=== PATIENT | male | born 1980 | race Caucasian/White ===

== ENCOUNTER 2019-12-25 16:22 | Emergency (ER) | payer BC ==
[2019-12-25 16:46] VITALS: BP 158/105; PULSE 65; O2SAT 96
--- NOTE | 2019-12-25 16:47 | ERPHSYRPT ---
- History of Present Illness Time Seen by Provider: 12/25/19 16:46 Patient Subjective Stated Complaint: Pt states that he was having some high blood pressure on Wednesday and that his face kept feeling really hot and began to burn and then the rash appeared Triage Nursing Assessment: Pt walked into the ER, hypertensive, rates burning pain as 2/10, denies rash being anywhere else on his body, denies any new soap, lotions, aftershave, foods, pt states that he did take Elderberry on Wednesday, face, head, and neck is red and has a small elevated rash to him Physician History: This is a 39-year-old gentleman with history of hypertension on lisinopril and Pepcid who presents with a 3-day history of intermittent redness and warmth to his skin. Today, he noticed worsening redness as well as associated rash that itches. Patient states he has no known new exposures. However, he is allergic to some types of fragrances. It is unclear to him whether or not he was exposed to a fragrance or not. Patient denies any respiratory issues at this time. Timing/Duration: day(s) (3) Quality: burning, itchy Severity: moderate Location: scalp, face, torso Possible Causes: no cause identified Modifying Factors: Improves With: other (Patient has not tried anything. However, he does take Pepcid daily) Associated Symptoms: hives, rash, No difficulty breathing, No fever, No nasal congestion, No numbness, No sore throat Allergies/Adverse Reactions: bupropion [From Wellbutrin] Allergy (Verified 12/25/19 16:46) Home Medications: Famotidine 20 mg [Pepcid 20 MG] 20 mg PO DAILY 12/25/19 [History] lisinopriL [Lisinopril] 10 mg PO DAILY 12/25/19 [History] - Review of Systems Constitutional: No Symptoms Eyes: No Symptoms Ears, Nose, & Throat: No Symptoms Respiratory: No Symptoms Cardiac: No Symptoms Abdominal/Gastrointestinal: No Symptoms Genitourinary Symptoms: No Symptoms Musculoskeletal: No Symptoms Skin: Pruritis, Rash Neurological: No Symptoms Psychological: No Symptoms Endocrine: No Symptoms Hematologic/Lymphatic: No Symptoms Immunological/Allergic: No Symptoms All Other Systems: Reviewed and Negative - Past Medical History Pertinent Past Medical History: Yes Neurological History: No Pertinent History ENT History: No Pertinent History Cardiac History: High Cholesterol, Hypertension Respiratory History: No Pertinent History Endocrine Medical History: No Pertinent History Musculoskeletal History: No Pertinent History GI Medical History: No Pertinent History History: No Pertinent History Psycho-Social History: No Pertinent History Male Reproductive Disorders: No Pertinent History - Past Surgical History Past Surgical History: Yes Neuro Surgical History: No Pertinent History Cardiac: No Pertinent History Respiratory: No Pertinent History Gastrointestinal: No Pertinent History, Cholecystectomy Genitourinary: No Pertinent History Musculoskeletal: No Pertinent History Male Surgical History: No Pertinent History - Social History Smoking Status: Never smoker Exposure to second hand smoke: Yes Drug Use: none Patient Lives Alone: No - Nursing Vital Signs Nursing Vital Signs: Initial Vital Signs Temperature 97.7 F 12/25/19 16:34 Pulse Rate 65 12/25/19 16:34 Blood Pressure 158/105 12/25/19 16:34 O2 Sat by Pulse Oximetry 96 12/25/19 16:34 Pain Scale Pain Intensity 2 - Physical Exam General Appearance: no apparent distress, alert, anxiety Eye Exam: PERRL/EOMI Ears, Nose, Throat Exam: normal ENT inspection, moist mucous membranes Neck Exam: normal inspection, non-tender, supple, full range of motion Respiratory Exam: normal breath sounds, lungs clear, airway intact, No chest tenderness, No respiratory distress Cardiovascular Exam: regular rate/rhythm, normal heart sounds, normal peripheral pulses Gastrointestinal/Abdomen Exam: soft, normal bowel sounds, No tenderness Rectal Exam: not done Back Exam: normal inspection, normal range of motion, No CVA tenderness, No vertebral tenderness Extremity Exam: normal inspection, normal range of motion, pelvis stable Neurologic Exam: alert, oriented x 3, cooperative, band saw marker II-XII nml as tested, nml cerebellar function, nml station & gait, sensation nml Skin Exam: warm, rash, other (Reddened face and neck. Small nonraised coalesced pinpoint pink rash of the face scalp neck and upper torso.) Lymphatic Exam: No adenopathy SpO2 Interpretation: normal SpO2: 96 O2 Delivery: Room Air Ordered Tests: Medication Summary Discontinued Medications Generic Name Dose Route Start Last Admin Trade Name Freq PRN Reason Stop Dose Admin Diphenhydramine HCl 50 mg 12/25/19 16:55 12/25/19 17:11 Benadryl 25 Mg Capsule PO 12/25/19 16:56 50 mg STAT ONE Administration Diphenhydramine HCl Confirm 12/25/19 17:09 Benadryl 25 Mg Capsule Administered 12/25/19 17:10 Dose 50 mg .ROUTE .STK-MED ONE Diphenhydramine HCl Confirm 12/25/19 17:12 Benadryl 25 Mg Capsule Administered 12/25/19 17:13 Dose 25 mg .ROUTE .STK-MED ONE Famotidine 20 mg 12/25/19 16:55 12/25/19 17:11 Pepcid 20 Mg PO 12/25/19 16:56 20 mg STAT ONE Administration Famotidine Confirm 12/25/19 17:09 Pepcid 20 Mg Administered 12/25/19 17:10 Dose 20 mg .ROUTE .STK-MED ONE Methylprednisolone Sodium Succinate 125 mg 12/25/19 16:54 12/25/19 17:11 Solu-Medrol 125 Mg IM 12/25/19 16:55 125 mg STAT ONE Administration Methylprednisolone Sodium Succinate Confirm 12/25/19 17:09 Solu-Medrol 125 Mg Administered 12/25/19 17:10 Dose 125 mg .ROUTE .STK-MED ONE - Progress Progress: improved, re-examined Counseled pt/family regarding: diagnosis, need for follow-up, rad results - Departure Departure Disposition: Home Clinical Impression: Allergic reaction Condition: Stable Critical Care Time: No Referrals: MARCELLA RICE [Primary Care Provider] - Additional Instructions: Take 50 mg of Benadryl each night for the next 4 nights. Increase your Pepcid to 40 mg orally each day for the next 4 days. Take the prednisone medication as prescribed. Follow-up with your primary care physician for further management. Prescriptions: Prednisone 10 mg [Deltasone 10 mg] 10 mg PO TID #12 tablet
[2019-12-25] MEDS ORDERED: solu-MEDROL 125 MG IM ONE (16:54)
[2019-12-25] MEDS ORDERED: BENADRYL 25 MG CAPSULE PO ONE (16:55)
[2019-12-25] MEDS ORDERED: Pepcid 20 MG PO ONE (16:55)
[2019-12-25] MEDS ORDERED: BENADRYL 25 MG CAPSULE ONE ×2 (17:09→17:12)
[2019-12-25] MEDS ORDERED: Pepcid 20 MG ONE (17:09)
[2019-12-25] MEDS ORDERED: solu-MEDROL 125 MG ONE (17:09)
== END 2019-12-25 17:38 | disposition home or self-care (01) ==
LOC: ED 16:22
DX: T78.40XA Allergy, unspecified, initial encounter (principal); I10 Essential (primary) hypertension; Z79.899 Other long term (current) drug therapy; R21 Rash and other nonspecific skin eruption
CPT/HCPCS: 96372; 99283; J2930; A9270-GY

== ENCOUNTER 2020-02-07 00:30 | Emergency (ER) | payer SELFPAY ==
[2020-02-07] MEDS ORDERED: BABY ASPIRIN 81 MG CHEW PO ONE (01:02)
[2020-02-07] MEDS ORDERED: Nitrostat 0.4 MG (ED) SL ONE ×2 (01:02→01:05)
[2020-02-07] MEDS ORDERED: BABY ASPIRIN 81 MG CHEW ONE (01:05)
[2020-02-07] MEDS ORDERED: Sodium Chloride 0.9% 1000 ML 1,000 ML ONE (01:06)
[2020-02-07] MEDS ORDERED: Sodium Chloride 0.9% 1000 ML 1,000 ML IV SCH (01:15)
[2020-02-07 01:21] LABS: Absolute Neutrophil Ct (ANC) 3.93 (1.4-6.9); BASOPHIL % 0.2 % (0.0-0.4); Basophil (Absolute #) 0.02 (0-0.4); Eosinophil % 2.1 % (0.00-5.0); Eosinophil (Absolute #) 0.17 (0-0.5); Hematocrit 46.1 % (42-50); Hemoglobin 15.5 gm/dl (12.5-18.0); Lymphocyte (Absolute #) 3.13 (1.0-4.6); Lymphocytes % 38.3 % (24.0-44.0); Mean Cell Volume 88.1 fl (78-100); Mean Corpuscular Hemoglobin 29.6 pg (26-32); Mean Corpuscular Hgb Concent. 33.6 g/dl (32-36); Mean Platelet Volume 8.9 fl (7.5-11.0); Monocyte (Absolute #) 0.92 (0.0-1.3); Monocytes % 11.3 % (0.0-12.0); Neutrophil % 48.1 % (36.0-66.0); Platelet Count 246 K/mm3 (150-450); Red Blood Count 5.23 M/mm3 (4.1-5.6); Red Cell Distribution Width 12.3 % (11.5-14.0); White Blood Count 8.2 K/mm3 (4.0-10.5)
--- NOTE | 2020-02-07 01:24 | ERPHSYRPT ---
- History of Present Illness Time Seen by Provider: 02/07/20 00:55 Historian: patient Exam Limitations: no limitations Patient Subjective Stated Complaint: Patient states " I have been having chest pain for about 2 weeks that radiates into my left shoulder". Patient states " I started a new blood pressure pill 2 weeks ago (Norvasc 5MG) and it started making me feel weird and I started having aches throughout my chest that was going into my left shoulder so I called my PCP and they told me to stop taking it". Patient states " I stopped taking it last night". Triage Nursing Assessment: Patient arrived to ER per self. Patient A/O times 4. Patient answers questions appropriatley. Central color WNL. Patient denies SOB. Patient states he has been having some nausea and indigestion. Patient denies vomiting. Cap refill < 3 sec. Bilateral lungs clear throughout A/P. No S/S of respiratory distress noted. No dependent edema noted. + BS times 4 quads. ABD soft, round, non-distended. Patient denies any ABD pain or discomfort. Apical pulse strong and regular. Patient hypertensive. Physician History: This is a 39-year-old white male who presents with a two-week history of intermittent chest pain. The chest pain is on the left side it is localized and sharp but at times radiates to his left shoulder. Patient started Norvasc blood pressure medication approximately 2 weeks ago. Patient called his primary care physician who prescribed the medication yesterday. He was told to stop the medication to see if the medication was causing his chest pain. Patient has no history of any cardiac problems. However there is a family history of cardiac issues. Patient denies shortness of breath. Patient denies abdominal pain. Patient has had no fever and no cough. Patient has a significant history of anxiety Timing/Duration: week(s) (2) Activities at Onset: none Location: other (Left of midline anterior chest pain) Chest Pain Radiation: arm (Shoulder) Severity of Pain-Max: mild Severity of Pain-Current: mild Modifying Factors: Improves With: nothing Associated Symptoms: denies symptoms Prior Chest Pain/Cardiac Workup: no prior chest pain Nitro Today/Relief: no nitro taken today Aspirin Treatment Today: no aspirin today Allergies/Adverse Reactions: bupropion [From Wellbutrin] Allergy (Verified 12/25/19 16:46) Home Medications: Famotidine 20 mg [Pepcid 20 MG] 20 mg PO DAILY 12/25/19 [History] lisinopriL [Lisinopril] 10 mg PO DAILY 12/25/19 [History] Hx Tetanus, Diphtheria Vaccination/Date Given: No Hx Influenza Vaccination/Date Given: Yes Hx Pneumococcal Vaccination/Date Given: No Immunizations Up to Date: Yes Travel Risk - International Travel Have you traveled outside of the country in past 3 weeks: No Have you or anyone close to you been diagnosed with or: No Do your reside in a community with a known COVID-19 case?: Yes If Yes where:: [facility] - Coronavirus Screening Has patient experienced Coronavirus symptoms: No - Review of Systems Constitutional: No Symptoms Eyes: No Symptoms Ears, Nose, & Throat: No Symptoms Respiratory: No Symptoms Cardiac: Chest Pain (left anterior chest) Abdominal/Gastrointestinal: No Symptoms Genitourinary Symptoms: No Symptoms Musculoskeletal: No Symptoms Skin: No Symptoms Neurological: No Symptoms Psychological: No Symptoms Endocrine: No Symptoms Hematologic/Lymphatic: No Symptoms Immunological/Allergic: No Symptoms All Other Systems: Reviewed and Negative - Past Medical History Pertinent Past Medical History: Yes Neurological History: No Pertinent History ENT History: No Pertinent History Cardiac History: High Cholesterol, Hypertension Respiratory History: No Pertinent History Endocrine Medical History: No Pertinent History Musculoskeletal History: No Pertinent History GI Medical History: No Pertinent History History: No Pertinent History Psycho-Social History: No Pertinent History Male Reproductive Disorders: No Pertinent History - Past Surgical History Past Surgical History: Yes Neuro Surgical History: No Pertinent History Cardiac: No Pertinent History Respiratory: No Pertinent History Gastrointestinal: No Pertinent History, Cholecystectomy Genitourinary: No Pertinent History Musculoskeletal: No Pertinent History Male Surgical History: No Pertinent History - Social History Smoking Status: Former smoker Exposure to second hand smoke: No Drug Use: none Patient Lives Alone: No - Nursing Vital Signs Nursing Vital Signs: Initial Vital Signs Temperature 97.5 F 02/07/20 00:31 Pulse Rate 87 02/07/20 00:31 Respiratory Rate 18 02/07/20 00:31 Blood Pressure 177/113 02/07/20 00:31 O2 Sat by Pulse Oximetry 99 02/07/20 00:31 Pain Scale Pain Intensity 0 - Physical Exam General Appearance: no apparent distress, alert, anxiety Eye Exam: PERRL/EOMI, eyes nml inspection Ears, Nose, Throat Exam: normal ENT inspection, moist mucous membranes Neck Exam: normal inspection, non-tender, supple, full range of motion Respiratory Exam: normal breath sounds, chest tenderness, lungs clear, airway intact, No respiratory distress Cardiovascular Exam: regular rate/rhythm, normal heart sounds, normal peripheral pulses Gastrointestinal/Abdomen Exam: soft, normal bowel sounds, No tenderness Rectal Exam: not done Back Exam: normal inspection, normal range of motion, No CVA tenderness, No vertebral tenderness Extremity Exam: normal inspection, normal range of motion, pelvis stable Neurologic Exam: alert, oriented x 3, cooperative, set illustrator II-XII nml as tested Skin Exam: normal color, warm, dry Lymphatic Exam: No adenopathy SpO2 Interpretation: normal SpO2: 99 O2 Delivery: Room Air - Course Nursing assessment & vital signs reviewed: Yes EKG Interpreted by Me: RATE (75), Sinus Rhythm, NORMAL AXIS, NORMAL INTERVALS, NORMAL QRS, Other (No evidence of acute ischemic changes) Ordered Tests: Active Orders 24 hr Category Date Time Status Wash And Greaser STAT Care 02/07/20 01:02 Active EKG-ER Only STAT Care 02/07/20 01:02 Active IV Insertion STAT Care 02/07/20 01:02 Active Isolation, Initiate & Maintain Q4H Care 02/07/20 00:53 Active Pulse Oximetry (ED) STAT Care 02/07/20 01:02 Active CBC W DIFF Stat Lab 02/07/20 00:55 Completed CMP Stat Lab 02/07/20 00:55 Completed D-DIMER QUANTITATIVE Stat Lab 02/07/20 00:55 Completed NT PRO BNP Stat Lab 02/07/20 00:55 Completed PROTIME WITH INR Stat Lab 02/07/20 00:55 Completed TROPONIN Q3H Lab 02/07/20 00:55 Completed TROPONIN Q3H Lab 02/07/20 04:15 Ordered TROPONIN Q3H Lab 02/07/20 07:15 Ordered TROPONIN Q3H Lab 02/07/20 10:15 Ordered TROPONIN Q3H Lab 02/07/20 13:15 Ordered Medication Summary Generic Name Dose Route Start Last Admin Trade Name Freq PRN Reason Stop Dose Admin Sodium Chloride 1,000 mls @ 100 mls/hr 02/07/20 01:15 02/07/20 01:06 Sodium Chloride 0.9% 1000 Ml IV 03/08/20 01:14 100 mls/hr .Q10H CRIS Administration Discontinued Medications Generic Name Dose Route Start Last Admin Trade Name Romana PRN Reason Stop Dose Admin Aspirin 324 mg 02/07/20 01:02 02/07/20 01:06 Baby Aspirin 81 Mg Chew PO 02/07/20 01:03 324 mg STAT ONE Administration Aspirin Confirm 02/07/20 01:05 Baby Aspirin 81 Mg Chew Administered 02/07/20 01:06 Dose 324 mg .ROUTE .STK-MED ONE Nitroglycerin 0.4 mg 02/07/20 01:02 02/07/20 01:06 Nitrostat 0.4 Mg (Ed) SL 02/07/20 01:03 0.4 mg STAT ONE Administration Nitroglycerin Confirm 02/07/20 01:05 Nitrostat 0.4 Mg (Ed) Administered 02/07/20 01:06 Dose 0.4 mg SL .STK-MED ONE Lab/Rad Data: Laboratory Result Diagrams 02/07/20 00:55 02/07/20 00:55 Laboratory Results 02/07/20 02/07/20 02/07/20 Range/Units 00:55 00:55 00:55 WBC (4.0-10.5) K/mm3 RBC (4.1-5.6) M/mm3 Hgb (12.5-18.0) gm/dl Hct (42-50) % MCV (78-100) fl MCH (26-32) pg MCHC (32-36) g/dl RDW (11.5-14.0) % Plt Count (150-450) K/mm3 MPV (7.5-11.0) fl Gran % (36.0-66.0) % Eos # (Auto) (0-0.5) Absolute Lymphs (auto) (1.0-4.6) Absolute Monos (auto) (0.0-1.3) Lymphocytes % (24.0-44.0) % Monocytes % (0.0-12.0) % Eosinophils % (0.00-5.0) % Basophils % (0.0-0.4) % Absolute Granulocytes (1.4-6.9) Basophils # (0-0.4) PT 11.4 (8.83-12.87) SECONDS INR 1.01 (0.8-3.0) D-Dimer 362 (215-500) ng/mL Sodium 141 (137-145) mmol/L Potassium 4.2 (3.5-5.1) mmol/L Chloride 105 (98-107) mmol/L Carbon Dioxide 28 (22-30) mmol/L Anion Gap 12.2 (5-15) MEQ/L BUN 19 (9-20) mg/dL Creatinine 1.26 H (0.66-1.25) mg/dL Estimated GFR > 60.0 ML/MIN Glucose 104 (74-106) mg/dL Calcium 9.9 (8.4-10.2) mg/dL Total Bilirubin 0.50 (0.2-1.3) mg/dL AST 43 (17-59) U/L ALT 62 H (0-50) U/L Alkaline Phosphatase 54 (38-126) U/L Troponin I < 0.012 (0.000-0.034) ng/mL NT-Pro-B Natriuret Pep < 11.1 (0-450) pg/mL Serum Total Protein 7.8 (6.3-8.2) g/dL Albumin 4.7 (3.5-5.0) g/dL 02/07/20 Range/Units 00:55 WBC 8.2 (4.0-10.5) K/mm3 RBC 5.23 (4.1-5.6) M/mm3 Hgb 15.5 (12.5-18.0) gm/dl Hct 46.1 (42-50) % MCV 88.1 (78-100) fl MCH 29.6 (26-32) pg MCHC 33.6 (32-36) g/dl RDW 12.3 (11.5-14.0) % Plt Count 246 (150-450) K/mm3 MPV 8.9 (7.5-11.0) fl Gran % 48.1 (36.0-66.0) % Eos # (Auto) 0.17 (0-0.5) Absolute Lymphs (auto) 3.13 (1.0-4.6) Absolute Monos (auto) 0.92 (0.0-1.3) Lymphocytes % 38.3 (24.0-44.0) % Monocytes % 11.3 (0.0-12.0) % Eosinophils % 2.1 (0.00-5.0) % Basophils % 0.2 (0.0-0.4) % Absolute Granulocytes 3.93 (1.4-6.9) Basophils # 0.02 (0-0.4) PT (8.83-12.87) SECONDS INR (0.8-3.0) D-Dimer (215-500) ng/mL Sodium (137-145) mmol/L Potassium (3.5-5.1) mmol/L Chloride (98-107) mmol/L Carbon Dioxide (22-30) mmol/L Anion Gap (5-15) MEQ/L BUN (9-20) mg/dL Creatinine (0.66-1.25) mg/dL Estimated GFR ML/MIN Glucose (74-106) mg/dL Calcium (8.4-10.2) mg/dL Total Bilirubin (0.2-1.3) mg/dL AST (17-59) U/L ALT (0-50) U/L Alkaline Phosphatase (38-126) U/L Troponin I (0.000-0.034) ng/mL NT-Pro-B Natriuret Pep (0-450) pg/mL Serum Total Protein (6.3-8.2) g/dL Albumin (3.5-5.0) g/dL - Progress Progress: improved Air Movement: good Progress Note: 02/07/20 02:17 No longer has chest pain. Blood Culture(s) Obtained: No Antibiotics given: No Counseled pt/family regarding: lab results, diagnosis, need for follow-up - Departure Departure Disposition: Home Clinical Impression: Hypertension, Chest pain, non-cardiac, Anxiety Condition: Stable Critical Care Time: No Referrals: MARCELLA RICE [Primary Care Provider] - Additional Instructions: Call your primary care physician later this morning to arrange a follow-up appointment and to give further instructions regarding your blood pressure control. Forms: Work/School Release Form
[2020-02-07 01:31] LABS: INR 1.01 (0.8-3.0); PROTIME 11.4 SECONDS (8.83-12.87)
[2020-02-07 01:44] LABS: ALBUMIN 4.7 g/dL (3.5-5.0); ALKALINE PHOSPHATASE 54 U/L (38-126); ANION GAP 12.2 MEQ/L (5-15); BLOOD UREA NITROGEN 19 mg/dL (9-20); CHLORIDE 105 mmol/L (98-107); Calcium 9.9 mg/dL (8.4-10.2); Carbon Dioxide 28 mmol/L (22-30); Creatinine 1 1.26 mg/dL (0.66-1.25); Glucose 104 mg/dL (74-106); NT PRO BNP < 11.1 pg/mL (0-450); Potassium 4.2 mmol/L (3.5-5.1); SGOT/AST 43 U/L (17-59); SGPT/ALT 62 U/L (0-50); SODIUM 141 mmol/L (137-145); Total Protein 7.8 g/dL (6.3-8.2)
[2020-02-07 02:08] VITALS: BP 136/101; PULSE 69
[2020-02-07 02:18] VITALS: O2SAT 99
== END 2020-02-07 02:27 | disposition home or self-care (01) ==
LOC: ED 00:30
DX: I10 Essential (primary) hypertension (principal); R07.89 Other chest pain; F41.9 Anxiety disorder, unspecified; Z79.899 Other long term (current) drug therapy; E78.00 Pure hypercholesterolemia, unspecified
CPT/HCPCS: 36000; 36415; 80053; 83880; 84484; 85025; 85379; 85610; 93005; 93041; 94760; 96360; 99284; A9270-GY

== ENCOUNTER 2021-04-22 20:48 | Emergency (ER) | payer OTHER, SELFPAY ==
[2021-04-22 21:11] VITALS: BP 159/100; O2SAT 98
[2021-04-22] MEDS ORDERED: Fluor-I-Strip/Ful-Flo OP ONE (21:16)
[2021-04-22] MEDS ORDERED: TETRACAINE 0.5% STERI-UNIT SOL OP ONE (21:16)
[2021-04-22] MEDS ORDERED: Eye-Stream Solution ONE (21:17)
[2021-04-22] MEDS ORDERED: Ocuflox OPHTHALMIC 5 ML OP SCH (21:30)
[2021-04-22] MEDS ORDERED: Ocuflox OPHTHALMIC 5 ML OP ONE (21:40)
--- NOTE | 2021-04-22 21:41 | ERPHSYRPT ---
- History of Present Illness Time Seen by Provider: 04/22/21 21:28 Source: patient Exam Limitations: no limitations Patient Subjective Stated Complaint: pt states after work yesterday he began having pain in his rt eye. 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 states the pain got bad after he turned the ac on in his vehicle. Triage Nursing Assessment: pt alert and oriented, answers questions approp. pt ambulatory with steady gait noted. respirations nonlabored. tearing and rednes noted to rt eye. pupils equal and reactive. 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 Patient reports he used PPE all the time and yesterday after work he turned on his car before meals and something happened and started to watering and pain/burning sensation. Denies any visual disturbance. Pain is mild to moderate dull aching. Up-to-date with tetanus. Timing/Duration: yesterday, constant, sudden, worse Location: right eye Severity: moderate Apparent Injury: no Associated Symptoms: pain, burning, sensitivity to light, foreign body sensation, No eyelid swelling, No decreased vision, No blurred vision, No double vision Visual Assistive Devices: None Chemical Exposure: No Allergies/Adverse Reactions: bupropion [From Wellbutrin] Allergy (Severe, Verified 04/22/21 21:11) Tightness of Throat Home Medications: Famotidine 20 mg [Pepcid 20 MG] 20 mg PO BID 12/25/19 [History] Carvedilol 6.25 mg [Coreg 6.25 MG] 6.25 mg PO BID 04/22/21 [History] Hx Tetanus, Diphtheria Vaccination/Date Given: Yes Hx Influenza Vaccination/Date Given: No Hx Pneumococcal Vaccination/Date Given: No Immunizations Up to Date: Yes Travel Risk - International Travel Have you traveled outside of the country in past 3 weeks: No - Coronavirus Screening Are you exhibiting any of the following symptoms?: No Close contact with a COVID-19 positive Pt in past 14-21 Days: No - Vaccine Status Have you recieved a Covid-19 vaccination: No - Review of Systems Constitutional: No Symptoms Eyes: Eye Pain, Eye Redness, Tearing, Foreign Body Sensation Ears, Nose, & Throat: Nose Congestion Respiratory: No Symptoms Cardiac: No Symptoms Abdominal/Gastrointestinal: No Symptoms Genitourinary Symptoms: No Symptoms Musculoskeletal: No Symptoms Skin: No Symptoms Neurological: No Symptoms Endocrine: No Symptoms Immunological/Allergic: No Symptoms - Past Medical History Pertinent Past Medical History: Yes Neurological History: No Pertinent History ENT History: No Pertinent History Cardiac History: High Cholesterol, Hypertension Respiratory History: No Pertinent History Endocrine Medical History: No Pertinent History Musculoskeletal History: No Pertinent History GI Medical History: No Pertinent History History: No Pertinent History Psycho-Social History: No Pertinent History Male Reproductive Disorders: No Pertinent History - Past Surgical History Past Surgical History: Yes Neuro Surgical History: No Pertinent History Cardiac: No Pertinent History Respiratory: No Pertinent History Gastrointestinal: No Pertinent History, Cholecystectomy Genitourinary: No Pertinent History Musculoskeletal: No Pertinent History Male Surgical History: No Pertinent History - Social History Smoking Status: Former smoker Exposure to second hand smoke: No Drug Use: none Patient Lives Alone: No - Nursing Vital Signs Nursing Vital Signs: Initial Vital Signs Pulse Rate 91 H 04/22/21 21:00 Respiratory Rate 16 04/22/21 21:00 Blood Pressure 159/100 04/22/21 21:00 O2 Sat by Pulse Oximetry 98 04/22/21 21:00 Pain Scale Pain Intensity 6 - Physical Exam General Appearance: no apparent distress, alert Vision Acuity Degree Evaluation Phase: Uncorrected Vision Acuity Right Eye: 20/30 Vision Acuity Left Eye: 20/30 Eye Exam: right eye: erythema (Conjunctival), left eye: normal inspection, bilateral eye: PERRL, EOMI Ears, Nose, Throat Exam: normal ENT inspection, moist mucous membranes Neck Exam: normal inspection, non-tender, supple, full range of motion Respiratory Exam: normal breath sounds, lungs clear Cardiovascular Exam: regular rate/rhythm, normal heart sounds Extremity Exam: normal inspection Neurologic: alert, oriented x 3, cooperative, client business manager II-XII nml as tested, normal mood/affect Skin Exam: normal color SpO2 Interpretation: normal SpO2: 98 O2 Delivery: Room Air Procedures - Eye Procedure Time of Procedure: 21:30 Timeout: Performed Tetracaine Drops Administered: Yes Eye Irrigated w/ Saline (ccs): 30 Antibiotic Oinment/Drps Admin: right eye Ordered Tests: Medication Summary Generic Name Dose Route Start Last Admin Trade Name Freq PRN Reason Stop Dose Admin Ofloxacin 5 ml 04/22/21 21:30 Ocuflox Ophthalmic 5 Ml OP 05/22/21 21:29 Q6H CRIS Discontinued Medications Generic Name Dose Route Start Last Admin Trade Name Romana PRN Reason Stop Dose Admin Eye Irrigation Solution Confirm 04/22/21 21:17 Eye-Stream Solution Administered 04/22/21 21:18 Dose 30 ml .ROUTE .STK-MED ONE Fluorescein Sodium Confirm 04/22/21 21:16 [id number] Administered 04/22/21 21:17 Dose 1 mg OP .STK-MED ONE Tetracaine HCl Confirm 04/22/21 21:16 Tetracaine 0.5% Steri-Unit Raven Administered 04/22/21 21:17 Dose 4 ml OP .STK-MED ONE - Progress Progress: improved, re-examined Progress Note: 04/22/21 21:40 I did not appreciate any obvious foreign body underneath upper or lower lid. No fluorescein uptake. Up-to-date with tetanus. Started on antibiotic eyedrops, recommended outpatient ophthalmology/optometry follow-up. Offered pain medication but he does not want it. Counseled pt/family regarding: diagnosis, need for follow-up - Departure Departure Disposition: Home Clinical Impression: Sensation of foreign body in eye Condition: Stable Critical Care Time: No Referrals: MARCELLA RICE [Primary Care Provider] - Follow Up with PCP/3 days ARYA WELCH [CONSULTING PHYSICIAN] - (Call tomorrow for appointment) Instructions: Foreign Body in Eye (DC) Additional Instructions: Use Tylenol/ibuprofen as needed for pain. May need to use eye patch if light bothering you. Follow-up with eye doctor for reevaluation tomorrow. Return to ER for worsening pain, discharge/visual disturbance etc. continue using eyedrops given to you 2 drops every 6 hourly for next 5 to 7 days.
[2021-04-22 21:52] VITALS: PULSE 85
== END 2021-04-22 21:51 | disposition home or self-care (01) ==
LOC: ED 20:48
DX: T15.11XA Foreign body in conjunctival sac, right eye, initial encounter (principal); H57.11 Ocular pain, right eye
CPT/HCPCS: 99283; A9270-GY